=== PATIENT | male | born 1970 | race African-American/Black ===

== ENCOUNTER 2016-09-23 06:46 | Emergency (ER) | payer MEDICAID, OTHER ==
--- NOTE | 2016-09-23 09:03 | EDDOCDS ---
Physician Documentation [facility] Name: Felton Short Age: 45 yrs Sex: Male : 1970 Arrival Date: 09/23/2016 Time: 06:46 Bed I3 / M3 Private MD: Disposition: 09/23/16 08:50 Discharged to Home/Self Care. Impression: Encounter for issue of repeat prescription, Hypothyroidism, unspecified. - Condition is Stable. - Discharge Instructions: Medicine Refill at the Emergency Department. - Prescriptions for levothyroxine 112 mcg Oral tablet - take 2 tablet by ORAL route once daily; 48 tablet. - Medication Reconciliation, Local Pharmacy Hours form. - Follow up: Private Physician; When: As previously arranged; Reason: Recheck today's complaints. - Problem is chronic. - Symptoms are unchanged. Historical: - Allergies: No known drug Allergies; - Home Meds: 1. levothyroxine 200 mcg Oral tab 1 tab once daily last taken 4-5 days ago - PMHx: Thyroid problem; - PSHx: bilateral hip surgery; - Social history: Smoking status: Patient uses tobacco products, light tobacco smoker. No barriers to communication noted, The patient speaks fluent Nigerian, Speaks appropriately for age. - Family history: Not pertinent. - : The pt / caregiver states he / she is not on anticoagulants. Home medication list is obtained from the patient. - Exposure Risk Screening:: None identified. Vital Signs: 09/23 06:53 BP 114 / 75; Pulse 81; Resp 16; Temp 97.8(T); Pulse Ox 99% on R/A; Weight 83.91 kg / cz 184.99 lbs; Height 5 ft. 5 in. (165.10 cm); 06:53 Body Mass Index 30.79 (83.91 kg, 165.10 cm) cz MDM: 07:32 TSH w/o Free T4 Ordered. EDMS 07:56 Financial registration complete. lg 07:56 [facility] Payment Agreement was scanned into [employer] and attached to record. lg 08:38 TSH w/o Free T4 Reviewed. ar2 Signatures: Dispatcher [employer] EDMS Leighann Sandoval RN RN [facility] Tristan Villarreal RN RN dwg Zecher, Calvin, RN RN cz Jayme Stokes, Jony Borges lg Cortez Talley PA-C PA-C ar2 The chart was reviewed and I authenticate all verbal orders and agree with the evaluation and treatment provided.Attachments: 07:56 [facility] Payment Agreement lg MTDD
--- NOTE | 2016-09-23 09:03 | EDDOCDS ---
Nurse's Notes [facility] Name: Felton Short Age: 45 yrs Sex: Male : 1970 Arrival Date: 09/23/2016 Time: 06:46 Bed I3 / M3 Private MD: Diagnosis: Encounter for issue of repeat prescription;Hypothyroidism, unspecified Presentation: 09/23 06:51 Presenting complaint: Patient states: he missed his doctors appt and need a cz prescription for his medication. Adult Sepsis Screening: The patient does not have new or worsening altered mentation. Patient's respiratory rate is less than 22. Systolic blood pressure is greater than 100. Patient has a qSOFA score of 0- Negative Sepsis Screen. Mental Health Triage Level: Not applicable. Suicide/Homicide risk assessment- the patient denies having any suicidal and/or homicidal ideations and does not present with any other emotional, behavioral or mental health complaints. Status: Patient is not a support services rep or dependent. Transition of care: patient was not received from another setting of care. 06:51 Acuity: TACO Level 5 cz 06:51 Method Of Arrival: Walkin/Carried/Asstd cz Triage Assessment: 06:53 General: Appears in no apparent distress. HIV screening NA for this visit Offered cz previously. Historical: - Allergies: No known drug Allergies; - Home Meds: 1. levothyroxine 200 mcg Oral tab 1 tab once daily last taken 4-5 days ago - PMHx: Thyroid problem; - PSHx: bilateral hip surgery; - Social history: Smoking status: Patient uses tobacco products, light tobacco smoker. No barriers to communication noted, The patient speaks fluent Zambian, Speaks appropriately for age. - Family history: Not pertinent. - : The pt / caregiver states he / she is not on anticoagulants. Home medication list is obtained from the patient. - Exposure Risk Screening:: None identified. Screenin:20 Screening information is obtained from the patient. Primary language is Zambian. Fall jam1 risk: No risks identified. Assistance ADL's: requires no assistance with activities of daily living. Abuse/DV Screen: The patient / caregiver reports he/she is: not in a situation that causes fear, pain or injury. Nutritional screening: No deficits noted. Exposure Risk Screening: None identified. Advance Directives: Currently, there is no health care proxy. There is no active DNR order. There is no living will. There is no Power of Electrical Service Technician. Advance directive information has not previously been placed in an [facility] medical record. Further advance directive information is declined. home support is adequate. Assessment: 07:41 General: Appears comfortable, well developed, well nourished, well groomed, Behavior is kcs cooperative, pleasant. Pain: Denies pain. Neurological: Level of Consciousness is awake, alert. Respiratory: Airway is patent Respiratory effort is even, unlabored, Respiratory pattern is regular, symmetrical. Derm: Skin is intact, is healthy with good turgor, Skin is dry, Skin is black. Vital Signs: 06:53 BP 114 / 75; Pulse 81; Resp 16; Temp 97.8(T); Pulse Ox 99% on R/A; Weight 83.91 kg; cz Height 5 ft. 5 in. (165.10 cm); 06:53 Body Mass Index 30.79 (83.91 kg, 165.10 cm) cz Vitals: 06:53 Log In Time: September 23, 2016 at 06:46. ED Course: 06:48 Patient visited by Los Jensen, Reg. pm4 06:48 Patient moved to Waiting pm4 06:52 Triage Initiated cz 07:06 Patient moved to I3 / M3 dwg 07:09 Cortez Talley [facility]-C [facility]. ar2 07:09 Lee Urena MD is Attending Physician. ar2 07:19 Patient visited by Cortez Talley PA-C. ar2 07:20 Pt greeted and oriented to ED. Patient advised of names of staff involved in care, jam1 location of call milian, wait times and NPO status. Patient has correct armband on for positive identification. Bed in low position. Call light in reach. Side rails up X 1. Door closed. 07:41 TSH w/o Free T4 Sent. kcs 07:55 Patient name changed from Tors\S\\S\Short\S\ to Tors\S\Johnny\S\Short. EDMS 07:56 [facility] [place] Payment Agreement was scanned into [employer] and attached to record. lg 09:02 The patient / caregiver is instructed regarding the plan of care and ED course. dwg 09:02 No IV's were initiated during this patient's visit. No procedures done that require dwg assistance. Order Results: Lab Order: TSH w/o Free T4; SPEC'M 09/23/16 07:37 Test: THYROID STIMULATING HORMONE; Value: 7.550; Range: 0.358-3.740; Abnormal: Above high normal; Units: uIU/ML; Status: F Outcome: 08:50 Discharge ordered by Provider. ar2 09:01 Discharge Assessment: Patient awake, alert and oriented x 3. No cognitive and/or dwg functional deficits noted. Patient verbalized understanding of disposition instructions. patient administered narcotics - no. The following High Risk Discharge criteria are identified: None. Discharged to home. Condition: good Condition: stable. No special radiology studies were completed. Property sent home with patient. 09:02 Patient left the ED. dwg Signatures: Dispatcher [employer] EDMS Leighann Sandoval, RN RN Tristan Lacy RN RN dwg Zecher, Calvin, RN RN cz Usha Meza, AIR CONDITIONING SUPERVISOR AIR CONDITIONING SUPERVISOR jam1 Jayme Stokes, Reg Reg lg Cortez Talley PA-C PA-C ar2 Los Jensen, Reg Reg pm4 MTDD
--- NOTE | 2016-09-25 10:03 | EDDOCDS ---
Physician Documentation [facility] Name: Felton Short Age: 45 yrs Sex: Male : 1970 Arrival Date: 09/23/2016 Time: 06:46 Bed I3 / M3 Private MD: Disposition: 09/23/16 08:50 Discharged to Home/Self Care. Impression: Encounter for issue of repeat prescription, Hypothyroidism, unspecified. - Condition is Stable. - Discharge Instructions: Medicine Refill at the Emergency Department. - Prescriptions for levothyroxine 112 mcg Oral tablet - take 2 tablet by ORAL route once daily; 48 tablet. - Medication Reconciliation, Local Pharmacy Hours form. - Follow up: Private Physician; When: As previously arranged; Reason: Recheck today's complaints. - Problem is chronic. - Symptoms are unchanged. Historical: - Allergies: No known drug Allergies; - Home Meds: 1. levothyroxine 200 mcg Oral tab 1 tab once daily last taken 4-5 days ago - PMHx: Thyroid problem; - PSHx: bilateral hip surgery; - Social history: Smoking status: Patient uses tobacco products, light tobacco smoker. No barriers to communication noted, The patient speaks fluent Greek, Speaks appropriately for age. - Family history: Not pertinent. - : The pt / caregiver states he / she is not on anticoagulants. Home medication list is obtained from the patient. - Exposure Risk Screening:: None identified. Vital Signs: 09/23 06:53 BP 114 / 75; Pulse 81; Resp 16; Temp 97.8(T); Pulse Ox 99% on R/A; Weight 83.91 kg / cz 184.99 lbs; Height 5 ft. 5 in. (165.10 cm); 06:53 Body Mass Index 30.79 (83.91 kg, 165.10 cm) cz MDM: 07:32 TSH w/o Free T4 Ordered. EDMS 07:56 Financial registration complete. lg 07:56 [facility] [place] Agreement was scanned into [employer] and attached to record. lg 08:38 TSH w/o Free T4 Reviewed. ar2 12:55 T-Sheet-- Draft Copy was scanned into [employer] and attached to record. gb Signatures: Dispatcher [employer] EDMS Leighann Sandoval RN RN kcs Greene, Daniel, RN RN dwg Zecher, Calvin, RN RN cz Kelsi Lord, Reg Reg gb Jayme Stokes, Reg Reg lg Cortez Talley, RODRIGO WALLACE ar2 The chart was reviewed and I authenticate all verbal orders and agree with the evaluation and treatment provided.Attachments: 07:56 [facility] Payment Agreement lg 12:55 T-Sheet-- Draft Copy gb Chart Complete MTDD
--- NOTE | 2016-09-25 10:03 | EDDOCDS ---
Physician Documentation [facility] Name: Felton Short Age: 45 yrs Sex: Male : 1970 Arrival Date: 09/23/2016 Time: 06:46 Bed I3 / M3 Private MD: Disposition: 09/23/16 08:50 Discharged to Home/Self Care. Impression: Encounter for issue of repeat prescription, Hypothyroidism, unspecified. - Condition is Stable. - Discharge Instructions: Medicine Refill at the Emergency Department. - Prescriptions for levothyroxine 112 mcg Oral tablet - take 2 tablet by ORAL route once daily; 48 tablet. - Medication Reconciliation, Local Pharmacy Hours form. - Follow up: Private Physician; When: As previously arranged; Reason: Recheck today's complaints. - Problem is chronic. - Symptoms are unchanged. Historical: - Allergies: No known drug Allergies; - Home Meds: 1. levothyroxine 200 mcg Oral tab 1 tab once daily last taken 4-5 days ago - PMHx: Thyroid problem; - PSHx: bilateral hip surgery; - Social history: Smoking status: Patient uses tobacco products, light tobacco smoker. No barriers to communication noted, The patient speaks fluent Zimbabwean, Speaks appropriately for age. - Family history: Not pertinent. - : The pt / caregiver states he / she is not on anticoagulants. Home medication list is obtained from the patient. - Exposure Risk Screening:: None identified. Vital Signs: 09/23 06:53 BP 114 / 75; Pulse 81; Resp 16; Temp 97.8(T); Pulse Ox 99% on R/A; Weight 83.91 kg / cz 184.99 lbs; Height 5 ft. 5 in. (165.10 cm); 06:53 Body Mass Index 30.79 (83.91 kg, 165.10 cm) cz MDM: 07:32 TSH w/o Free T4 Ordered. EDMS 07:56 Financial registration complete. lg 07:56 [facility] Payment Agreement was scanned into [employer] and attached to record. lg 08:38 TSH w/o Free T4 Reviewed. ar2 12:55 T-Sheet-- Draft Copy was scanned into [employer] and attached to record. gb Signatures: Dispatcher [employer] EDMS Leighann Sandoval RN RN kcs Greene, Daniel, RN RN dwg Zecher, Calvin, RN RN cz Kelsi Lord, Reg Reg gb Jayme Stokes, Reg Reg lg Cortez Talley, RODRIGO WALLACE ar2 The chart was reviewed and I authenticate all verbal orders and agree with the evaluation and treatment provided.Attachments: 07:56 [facility] Payment Agreement lg 12:55 T-Sheet-- Draft Copy gb Chart Complete MTDD
--- NOTE | 2016-09-25 10:03 | EDDOCDS ---
Nurse's Notes [facility] Name: Felton Short Age: 45 yrs Sex: Male : 1970 Arrival Date: 09/23/2016 Time: 06:46 Bed I3 / M3 Private MD: Diagnosis: Encounter for issue of repeat prescription;Hypothyroidism, unspecified Presentation: 09/23 06:51 Presenting complaint: Patient states: he missed his doctors appt and need a cz prescription for his medication. Adult Sepsis Screening: The patient does not have new or worsening altered mentation. Patient's respiratory rate is less than 22. Systolic blood pressure is greater than 100. Patient has a qSOFA score of 0- Negative Sepsis Screen. Mental Health Triage Level: Not applicable. Suicide/Homicide risk assessment- the patient denies having any suicidal and/or homicidal ideations and does not present with any other emotional, behavioral or mental health complaints. Status: Patient is not a service desk lead or dependent. Transition of care: patient was not received from another setting of care. 06:51 Acuity: TACO Level 5 cz 06:51 Method Of Arrival: Walkin/Carried/Asstd cz Triage Assessment: 06:53 General: Appears in no apparent distress. HIV screening NA for this visit Offered cz previously. Historical: - Allergies: No known drug Allergies; - Home Meds: 1. levothyroxine 200 mcg Oral tab 1 tab once daily last taken 4-5 days ago - PMHx: Thyroid problem; - PSHx: bilateral hip surgery; - Social history: Smoking status: Patient uses tobacco products, light tobacco smoker. No barriers to communication noted, The patient speaks fluent Palauan, Speaks appropriately for age. - Family history: Not pertinent. - : The pt / caregiver states he / she is not on anticoagulants. Home medication list is obtained from the patient. - Exposure Risk Screening:: None identified. Screenin:20 Screening information is obtained from the patient. Primary language is Palauan. Fall jam1 risk: No risks identified. Assistance ADL's: requires no assistance with activities of daily living. Abuse/DV Screen: The patient / caregiver reports he/she is: not in a situation that causes fear, pain or injury. Nutritional screening: No deficits noted. Exposure Risk Screening: None identified. Advance Directives: Currently, there is no health care proxy. There is no active DNR order. There is no living will. There is no Power of General Office Associate. Advance directive information has not previously been placed in an [facility] medical record. Further advance directive information is declined. home support is adequate. Assessment: 07:41 General: Appears comfortable, well developed, well nourished, well groomed, Behavior is kcs cooperative, pleasant. Pain: Denies pain. Neurological: Level of Consciousness is awake, alert. Respiratory: Airway is patent Respiratory effort is even, unlabored, Respiratory pattern is regular, symmetrical. Derm: Skin is intact, is healthy with good turgor, Skin is dry, Skin is black. Vital Signs: 06:53 BP 114 / 75; Pulse 81; Resp 16; Temp 97.8(T); Pulse Ox 99% on R/A; Weight 83.91 kg; cz Height 5 ft. 5 in. (165.10 cm); 06:53 Body Mass Index 30.79 (83.91 kg, 165.10 cm) cz Vitals: 06:53 Log In Time: September 23, 2016 at 06:46. ED Course: 06:48 Patient visited by Los Jensen, Reg. pm4 06:48 Patient moved to Waiting pm4 06:52 Triage Initiated cz 07:06 Patient moved to I3 / M3 dwg 07:09 Cortez Talley [facility]-C [facility]. ar2 07:09 Lee Urena MD is Attending Physician. ar2 07:19 Patient visited by Cortez Talley PA-C. ar2 07:20 Pt greeted and oriented to ED. Patient advised of names of staff involved in care, jam1 location of call milian, wait times and NPO status. Patient has correct armband on for positive identification. Bed in low position. Call light in reach. Side rails up X 1. Door closed. 07:41 TSH w/o Free T4 Sent. kcs 07:55 Patient name changed from Tors\S\\S\Short\S\ to Tors\S\Johnny\S\Short. EDMS 07:[address] [facility] [place] Payment Agreement was scanned into [employer] and attached to record. lg 09:02 The patient / caregiver is instructed regarding the plan of care and ED course. dwg 09:02 No IV's were initiated during this patient's visit. No procedures done that require dwg assistance. 12:55 T-Sheet-- Draft Copy was scanned into [employer] and attached to record. gb Order Results: Lab Order: TSH w/o Free T4; SPEC'M 09/23/16 07:37 Test: THYROID STIMULATING HORMONE; Value: 7.550; Range: 0.358-3.740; Abnormal: Above high normal; Units: uIU/ML; Status: F Outcome: 08:50 Discharge ordered by Provider. ar2 09:01 Discharge Assessment: Patient awake, alert and oriented x 3. No cognitive and/or dwg functional deficits noted. Patient verbalized understanding of disposition instructions. patient administered narcotics - no. The following High Risk Discharge criteria are identified: None. Discharged to home. Condition: good Condition: stable. No special radiology studies were completed. Property sent home with patient. 09:02 Patient left the ED. dwg Signatures: Dispatcher [employer] EDMS Leighann Sandoval RN RN kcs Greene, Daniel, RN RN dwg Sampson Caruso RN RN cz Murphy, Jane, MEGHANA FILLING HAND jam1 Kelsi Lord, Reg Reg gb Jayme Stokes, Reg Reg lg Cortez Talley PABrigitte PABrigitte ar2 Los Jensen, Reg Reg pm4 Chart Complete MTDD
== END 2016-09-23 09:02 | disposition home or self-care (01) ==
LOC: M ED 06:46
DX: Z76.0 Encounter for issue of repeat prescription (principal); E07.9 Disorder of thyroid, unspecified; F17.200 Nicotine dependence, unspecified, uncomplicated